=== PATIENT | male | born 1995 | race African-American/Black ===

== ENCOUNTER 2019-02-08 19:53 | Emergency (ER) | payer BC ==
--- NOTE | 2019-02-08 20:29 | EDM.PDOC ---
ED HPI GENERAL MEDICAL PROBLEM - General Chief Complaint: Abdominal Pain Stated Complaint: ABDOMINAL PAIN/BODY ACHES Time Seen by Provider: 02/08/19 20:29 Source of Information: Reports: Patient History Limitations: Reports: No Limitations - History of Present Illness INITIAL COMMENTS - FREE TEXT/NARRATIVE: HISTORY AND PHYSICAL: History of present illness: Patient is a 23-year-old male presents to the ED with complaint of generally not feeling well for the past 2 weeks. He states he has been having joint aches , slight abdominal pain, and diarrhea. He denies fevers, chills, nausea, vomiting, dysuria, hematuria, cough, sore throat, headache. Review of systems: As per history of present illness and below otherwise all systems reviewed and negative. Past medical history: As per history of present illness and as reviewed below otherwise noncontributory. Surgical history: As per history of present illness and as reviewed below otherwise noncontributory. Social history: No reported history of drug or alcohol abuse. Family history: As per history of present illness and as reviewed below otherwise noncontributory. Physical exam: General: Patient sitting comfortably in no acute distress and nontoxic appearing HEENT: Atraumatic, normocephalic, pupils reactive, negative for conjunctival pallor or scleral icterus, mucous membranes moist, throat clear, neck supple, nontender, trachea midline. No meningeal signs. Lungs: Clear to auscultation, breath sounds equal bilaterally, chest nontender. Heart: S1S2, regular, negative for clicks, rubs, or overt murmur. Abdomen: Soft, nondistended, nontender. Negative for masses or hepatosplenomegaly. Negative for costovertebral tenderness. No rigidity, rebound , guarding. Pelvis: Stable nontender. Genitourinary: Deferred. Rectal: Deferred. Extremities: Atraumatic, negative for cords or calf pain. Neurovascular unremarkable. Neuro: Awake, alert, oriented. Cranial nerves II through XII unremarkable. Cerebellum unremarkable. Motor and sensory unremarkable throughout. Exam nonfocal. Notes: Mild dehydration, declined IV fluids Diagnostics: CBC, CMP, UA Therapeutics: [] Prescriptions: Impression: Mild dehydration Plan: Drink plenty of fluids as instructed Follow up with primary care provider Return to ED as needed as discussed Definitive disposition and diagnosis as appropriate pending reevaluation and review of above. abdomen Pain Score (Numeric/FACES): 6 generalized aches Pain Score (Numeric/FACES): 6 - Related Data Allergies Allergy/AdvReac Type Severity Reaction Status Date / Time No Known Allergies Allergy Verified 02/08/19 20:21 Home Meds: Home Meds . [No Known Home Meds] 02/08/19 [History] Past Medical History - Past Health History Medical/Surgical History: Denies Medical/Surgical History Social & Family History - Family History Family Medical History: Noncontributory - Tobacco Use Smoking Status *Q: Never Smoker Second Hand Smoke Exposure: No - Caffeine Use Caffeine Use: Reports: None - Recreational Drug Use Recreational Drug Use: No ED ROS GENERAL - Review of Systems Review Of Systems: ROS reveals no pertinent complaints other than HPI. ED EXAM, GI/ABD - Physical Exam Exam: See Below (see dictation) Course - Vital Signs Last Recorded V/S: Last Vital Signs Temp 96.9 F 02/08/19 20:16 Pulse 72 02/08/19 20:16 Resp 15 02/08/19 20:16 BP Pulse Ox 97 02/08/19 20:16 - Orders/Labs/Meds Labs: Laboratory Tests 02/08/19 02/08/19 02/08/19 Range/Units 20:37 20:46 20:46 WBC 5.22 (4.0-11.0) K/uL RBC 5.08 (4.50-5.90) M/uL Hgb 15.0 (13.0-17.0) g/dL Hct 42.6 (38.0-50.0) % MCV 83.9 (80.0-98.0) fL MCH 29.5 (27.0-32.0) pg MCHC 35.2 (31.0-37.0) g/dL RDW Std Deviation 38.5 (28.0-62.0) fl RDW Coeff of Tressa 13 (11.0-15.0) % Plt Count 179 (150-400) K/uL MPV 11.70 (7.40-12.00) fL Neut % (Auto) 40.6 L (48.0-80.0) % Lymph % (Auto) 46.6 H (16.0-40.0) % [place] % (Auto) 10.3 (0.0-15.0) % Eos % (Auto) 2.1 (0.0-7.0) % Baso % (Auto) 0.4 (0.0-1.5) % Neut # (Auto) 2.1 (1.4-5.7) K/uL Lymph # (Auto) 2.4 (0.6-2.4) K/uL [place] # (Auto) 0.5 (0.0-0.8) K/uL Eos # (Auto) 0.1 (0.0-0.7) K/uL Baso # (Auto) 0.0 (0.0-0.1) K/uL Nucleated RBC % 0.0 /100WBC Nucleated RBCs # 0 K/uL Sodium 141 (136-148) mmol/L Potassium 4.0 (3.5-5.1) mmol/L Chloride 105 (98-107) mmol/L Carbon Dioxide 26.8 (21.0-32.0) mmol/L BUN 22 H (7.0-18.0) mg/dL Creatinine 1.4 H (0.8-1.3) mg/dL Est Cr Clr Drug Dosing 95.83 mL/min Estimated GFR (MDRD) > 60.0 ml/min Glucose 94 (74-106) mg/dL Calcium 8.7 (8.5-10.1) mg/dL Total Bilirubin 0.6 (0.2-1.0) mg/dL AST 20 (15-37) IU/L ALT 23 (14-63) IU/L Alkaline Phosphatase 37 L (46-116) U/L Total Protein 8.1 (6.4-8.2) g/dL Albumin 4.1 (3.4-5.0) g/dL Globulin 4.0 (2.6-4.0) g/dL Albumin/Globulin Ratio 1.0 (0.9-1.6) Urine Color YELLOW Urine Appearance CLEAR Urine pH 5.5 (5.0-8.0) Ur Specific [place] 1.010 (1.001-1.035) Urine Protein NEGATIVE (NEGATIVE) mg/dL Urine Glucose (UA) NEGATIVE (NEGATIVE) mg/dL Urine Ketones NEGATIVE (NEGATIVE) mg/dL Urine Occult Blood NEGATIVE (NEGATIVE) Urine Nitrite NEGATIVE (NEGATIVE) Urine Bilirubin NEGATIVE (NEGATIVE) Urine Urobilinogen 0.2 (<2.0) EU/dL Ur Leukocyte Esterase NEGATIVE (NEGATIVE) Departure - Departure Time of Disposition: 21:14 Disposition: Home, Self-Care 01 Condition: Good Clinical Impression: Mild dehydration - Discharge Information Referrals: PCP,None [Primary Care Provider] - Forms: ED Department Discharge Additional Instructions: The following information is given to patients seen in the emergency department who are being discharged to home. This information is to outline your options for follow-up care. We provide all patients seen in our emergency department with a follow-up referral. The need for follow-up, as well as the timing and circumstances, are variable depending upon the specifics of your emergency department visit. If you don't have a primary care physician on staff, we will provide you with a referral. We always advise you to contact your personal physician following an emergency department visit to inform them of the circumstance of the visit and for follow-up with them and/or the need for any referrals to a consulting specialist. The emergency department will also refer you to a specialist when appropriate. This referral assures that you have the opportunity for follow-up care with a specialist. All of these measure are taken in an effort to provide you with optimal care, which includes your follow-up. Under all circumstances we always encourage you to contact your private physician who remains a resource for coordinating your care. When calling for follow-up care, please make the office aware that this follow-up is from your recent emergency room visit. If for any reason you are refused follow-up, please contact the [facility] Emergency Department at and asked to speak to the emergency department charge nurse. [facility] [address] [place] [id number] [address] Drink plenty of fluids as instructed Follow up with primary care provider Return to ED as needed as discussed
[2019-02-08 21:11] LABS: BLOOD UREA NITROGEN,BUN 22 mg/dL (7.0-18.0); CARBON DIOXIDE,CO2 26.8 mmol/L (21.0-32.0); CHLORIDE,CL 105 mmol/L (98-107); GLUCOSE RANDOM 94 mg/dL (74-106); SODIUM,NA 141 mmol/L (136-148)
== END 2019-02-08 21:32 | disposition home or self-care (01) ==
LOC: MW.ED 19:53
DX: E86.0 Dehydration (principal)
CPT/HCPCS: 36415; 80053; 81003; 85025; 99282; 99284

== ENCOUNTER 2020-04-16 23:26 | Emergency (ER) | payer BC ==
--- NOTE | 2020-04-16 23:49 | EDM.PDOC ---
ED HPI GENERAL MEDICAL PROBLEM - General Chief Complaint: General Stated Complaint: SICK Time Seen by Provider: 04/16/20 23:39 - History of Present Illness INITIAL COMMENTS - FREE TEXT/NARRATIVE: HISTORY AND PHYSICAL: History of present illness: This is a 24-year-old gentleman who presents ER today secondary to an episode of shortness of breath that occurred when his started putting some incidents in the home. Patient denies any other symptomatology. Patient has a recent fevers, shakes, chills, nausea, vomiting, diarrhea, dysuria, frequency, urgency, chest pain, abdominal pain. Patient denies any rhinorrhea, sore throat, ear pain, nasal congestion, cough. Patient reports that after he became short of breath he went outdoors and came to the ED. Patient reports that since going outdoors to come to the ER his shortness of breath has resolved. Patient currently has no other complaints. Review of systems: As per history of present illness and below otherwise all systems reviewed and negative. Past medical history: As per history of present illness and as reviewed below otherwise noncontributory. Surgical history: As per history of present illness and as reviewed below otherwise noncontributory. Social history: No reported history of drug or alcohol abuse. Family history: As per history of present illness and as reviewed below otherwise noncontributory. Physical exam: HEENT: Atraumatic, normocephalic, pupils reactive, negative for conjunctival pallor or scleral icterus, mucous membranes moist, throat clear, neck supple, nontender, trachea midline. Lungs: Clear to auscultation, breath sounds equal bilaterally, chest nontender. No wheezing rales or rhonchi Heart: S1S2, regular, negative for clicks, rubs, or JVD. Abdomen: Soft, nondistended, nontender. Negative for masses or hepatospl enomegaly. Negative for costovertebral tenderness. Pelvis: Stable nontender. Genitourinary: Deferred. Rectal: Deferred. Extremities: Atraumatic, negative for cords or calf pain. Neurovascular unremark able. Neuro: Awake, alert, oriented. Cranial nerves II through XII unremarkable. Cerebellum unremarkable. Motor and sensory unremarkable throughout. Exam nonfocal. Assessment and plan: This is a 24-year-old gentleman who presents ER today secondary to episode of wheezing after inhaling and since that his began to burn inside the home. Patient currently feels much better after leaving the house and going outdoors for a little bit. Patient is clinically and hemodynamically stable. Patient's pulse ox is 99-100% on room air with a heart rate of 84. Patient's lung exam is clear without any wheezing rales or rhonchi. Patient is resting comfortably and does not appear to be in any distress and does not appear to be short of breath. Patient feels very comfortable with the plan to be discharged home. I do not think patient requires any further studies in the ED as he is currently asymptomatic and appears that he likely had a reaction to the incidents. He has had his open all the windows at home to order the sent and he feels comfortable with the plan to be discharged home at this time. Reassessment at the time of disposition demonstrates that the patient is in no acute distress. The patient has remained stable throughout the entire ED visit and is without objective evidence for acute process requiring urgent intervention or hospitalization. The patient is stable for discharge, counseling is provided as documented above, discussed symptomatic treatment and specific conditions for return. I have spoken with the patient/caregiver and discussed todays findings, in addition to providing specific details for the plan of care. Questions are answered and there is agreement with the plan. Definitive disposition and diagnosis as appropriate pending reevaluation and review of above. April 17, 2019 173 2 PM: phone call follow-up made. Patient's voicemail is not set up to receive messages. No answer. - Related Data Allergies Allergy/AdvReac Type Severity Reaction Status Date / Time No Known Allergies Allergy Verified 04/16/20 23:33 Home Meds: Home Meds . [No Known Home Meds] 02/08/19 [History] Past Medical History - Past Health History Medical/Surgical History: Denies Medical/Surgical History - Infectious Disease History Infectious Disease History: Reports: None Social & Family History - Family History Family Medical History: No Pertinent Family History - Tobacco Use Tobacco Use Status *Q: Never Tobacco User - Caffeine Use Caffeine Use: Reports: Coffee - Recreational Drug Use Recreational Drug Use: No ED ROS GENERAL - Review of Systems Review Of Systems: See Below ED EXAM, GENERAL - Physical Exam Exam: See Below Course - Vital Signs Last Recorded V/S: Last Vital Signs Temp 97.8 F 04/16/20 23:33 Pulse 83 04/16/20 23:33 Resp 18 04/16/20 23:33 BP 112/74 04/16/20 23:33 Pulse Ox 100 04/16/20 23:33 Departure - Departure Time of Disposition: 23:47 Disposition: Home, Self-Care 01 Condition: Good Clinical Impression: Acute bronchospasm - Discharge Information Instructions: Shortness of Breath, Adult Referrals: PCP,None [Primary Care Provider] - Forms: ED Department Discharge Additional Instructions: You were seen in the ER secondary to shortness of breath that was most likely related to inhaling incense which likely resulted in some bronchospasms. Right now your exam is normal and appears that leaving the area with incense has resulted in your symptoms resolving. Please return to the ER if you have any new or concerning symptoms. The following information is given to patients seen in the emergency department who are being discharged to home. This information is to outline your options for follow-up care. We provide all patients seen in our emergency department with a follow-up referral. The need for follow-up, as well as the timing and circumstances, are variable depending upon the specifics of your emergency department visit. If you don't have a primary care physician on staff, we will provide you with a referral. We always advise you to contact your personal physician following an emergency department visit to inform them of the circumstance of the visit and for follow-up with them and/or the need for any referrals to a consulting specialist. The emergency department will also refer you to a specialist when appropriate. This referral assures that you have the opportunity for follow-up care with a specialist. All of these measure are taken in an effort to provide you with optimal care, which includes your follow-up. Under all circumstances we always encourage you to contact your private physician who remains a resource for coordinating your care. When calling for follow-up care, please make the office aware that this follow-up is from your recent emergency room visit. If for any reason you are refused follow-up, please contact the [facility] Emergency Department at and asked to speak to the emergency department charge nurse. [facility] - Primary Care [address] [place] [id number] [place] [address] Sepsis Event Note (ED) - Evaluation Sepsis Screening Result: No Definite Risk
== END 2020-04-16 23:59 | disposition home or self-care (01) ==
LOC: MW.ED 23:26
DX: J98.01 Acute bronchospasm (principal)
CPT/HCPCS: 99282; 99284

== ENCOUNTER 2020-07-31 22:14 | Emergency (ER) | payer BC ==
[2020-08-01 00:15] LABS: BLOOD UREA NITROGEN,BUN 12 mg/dL (7.0-18.0); CHLORIDE,CL 107 mmol/L (98-107); GLUCOSE RANDOM 92 mg/dL (74-106); POTASSIUM,K 4.3 mmol/L (3.5-5.1); SODIUM,NA 143 mmol/L (136-148)
[2020-08-01] MEDS ORDERED: Magnesium Oxide 400 MG Tab PO ONE (00:20)
--- NOTE | 2020-08-01 00:24 | EDM.PDOC ---
ED HPI GENERAL MEDICAL PROBLEM - General Chief Complaint: ENT Problem Stated Complaint: BITTER TASTE IN MOUTH Time Seen by Provider: 07/31/20 23:06 - History of Present Illness INITIAL COMMENTS - FREE TEXT/NARRATIVE: CHIEF COMPLAINT(S): Bitterness on my tongue HISTORY OF PRESENT ILLNESS: This is a 24-year-old and with a past medical history of CKD who comes to the emergency department with a chief complaint of bitterness on my tongue. The patient states that for approximately 1 year he has been experiencing bitterness sensation on his tongue. He states that he was evaluated here and got it diagnosed in he states it has something to do with his kidneys. He states that it has not changed or worsened but it seems to be bothering him. He denies any chest pain, shortness of breath, fever, chills, headache, blurry vision, diplopia, numbness, tingling, or weakness. He denies any Covid exposure. He denies any recent travel or recent surgery. He denies any DVT or PE. He denies any trouble walking speaking or swallowing. He states that he has not tried anything for the bitterness. He cannot further describe what the bitterness entails. He denies any trismus or drooling. He denies any sore throat. He denies any earache. REVIEW OF SYSTEMS: Constitutional: Positive for bitterness sensation of the tongue. Denies fever, chills. Eyes: Denies eye pain Ears, Nose, Mouth, & Throat: Denies earache Cardiovascular: Denies chest pain Respiratory: Denies shortness of breath Gastrointestinal: Denies Nausea, vomiting, diarrhea, hematochezia. Genitourinary: Denies hematuria Skin:Denies a rash MSK: Denies joint pain Neurological: Denies blurred vision, numbness, tingling, weakness Psychiatric: Denies depression PAST MEDICAL HISTORY: As per history of present illness and as reviewed below otherwise noncontributory. SURGICAL HISTORY: As per history of present illness and as reviewed below otherwise noncontributory. SOCIAL HISTORY: As per history of present illness and as reviewed below otherwise noncontributory. FAMILY HISTORY: As per history of present illness and as reviewed below otherwise noncontributory. EXAMINATION OF ORGAN SYSTEMS/BODY AREAS: Constitutional: Blood pressure was 102/69, heart rate 84, respiratory 16 with an oxygen saturation 98% on room air. Temperature 36.1 General: Overall well-appearing man who is in no acute distress. Psychiatric: Appropriate mood and affect. Eyes: No scleral icterus or conjunctival erythema pupils equal round reactive to light. Extraocular movements intact. No vertical horizontal nystagmus. ENMT: Moist mucous membranes. No pharyngeal erythema no abnormality of the tongue. The patient does have sensation on the tongue. There is no buccal masses, erythema on the gums or any abnormality. Uvula was midline. No trismus no drooling. Cardiovascular: Regular, rate, and rhythm. No gallops, murmurs, or rubs. Bilateral upper extremity pulses symmetric and intact. No peripheral edema. No JVD. Respiratory: Lungs clear to auscultation bilaterally. No wheezes, rales, or rhonchi. Gastrointestinal: Soft, non-tender, non-distended. Normoactive bowel sounds Genitourinary: No suprapubic tenderness Musculoskeletal: Normal range of motion. Skin: No lesions or abrasions. Neurological: AOx4. CN grossly intact. Strength 5/5 in bilateral upper and lower extremity. Sensation is intact bilaterally in upper and lower extremity. Gait appears normal. Finger to nose, heel to dye, rapid alternating movements intact. MEDICAL DECISION MAKING AND COURSE IN THE ED WITH INTERPRETATION/REVIEW OF DIAGNOSTIC STUDIES: This is a 24-year-old and with a past medical history of kidney disease who comes to the emergency department with 1 year of bitterness on his tongue. At this time the patient has a normal examination. At this time it is uncertain as to what is causing the patient's bitterness however given the duration of symptoms its not likely life-threatening. Will obtain basic labs given his history of kidney disease and evaluate for electrolyte abnormalities. I do not believe any other labs or imaging are indicated. Laboratory: BMP reveals a creatinine of 1.6 which is elevated from 1.4 otherwise unremarkable. There is hypocalcemia at 8.4 and hypomagnesemia at 1.7. After labs I did provide the patient with magnesium supplementation. I did discuss with him at this time that given the duration I do not believe this is life-threatening and that he should follow-up with his primary care physician for further work-up. He was amenable to discharge at this time and had no further questions. He is to return for any new or worsening symptoms. DISPOSITION: The patient was discharged home in stable condition. The patient will follow up with primary care physician within 1 week CONDITION: Fair PROCEDURES: None FINAL IMPRESSION(S)/DIAGNOSES: 1. Acute tongue sensation, unknown etiology Nishant Pandey M.D. - Related Data Allergies Allergy/AdvReac Type Severity Reaction Status Date / Time No Known Allergies Allergy Verified 07/31/20 23:08 Home Meds: Home Meds . [No Known Home Meds] 02/08/19 [History] Past Medical History - Past Health History Medical/Surgical History: Denies Medical/Surgical History - Infectious Disease History Infectious Disease History: Reports: None Social & Family History - Family History Family Medical History: No Pertinent Family History - Caffeine Use Caffeine Use: Reports: Coffee ED ROS GENERAL - Review of Systems Review Of Systems: See Below ED EXAM, GENERAL - Physical Exam Exam: See Below Course - Vital Signs Last Recorded V/S: Last Vital Signs Temp 36.1 C 07/31/20 23:08 Pulse 87 08/01/20 00:03 Resp 17 08/01/20 00:03 BP 112/69 08/01/20 00:03 Pulse Ox 99 08/01/20 00:03 - Orders/Labs/Meds Labs: Laboratory Tests 07/31/20 Range/Units 23:54 Sodium 143 (136-148) mmol/L Potassium 4.3 (3.5-5.1) mmol/L Chloride 107 (98-107) mmol/L Carbon Dioxide 28.0 (21.0-32.0) mmol/L BUN 12 (7.0-18.0) mg/dL Creatinine 1.6 H (0.8-1.3) mg/dL Est Cr Clr Drug Dosing 82.59 mL/min Estimated GFR (MDRD) > 60.0 ml/min Glucose 92 (74-106) mg/dL Calcium 8.4 L (8.5-10.1) mg/dL Magnesium 1.7 L (1.8-2.4) mg/dL Meds: Medications Discontinued Medications Generic Name Dose Route Start Last Admin Trade Name Freq PRN Reason Stop Dose Admin Magnesium Oxide 800 mg 08/01/20 00:20 08/01/20 00:43 Magnesium Oxide 400 Mg Tab PO 08/01/20 00:21 800 mg ONETIME ONE Administration Departure - Departure Time of Disposition: 00:23 Disposition: Home, Self-Care 01 Condition: Good Clinical Impression: Kidney disease - Discharge Information *PRESCRIPTION DRUG MONITORING PROGRAM REVIEWED*: No *COPY OF PRESCRIPTION DRUG MONITORING REPORT IN PATIENT LAVINIA: No Instructions: Chronic Kidney Disease, Adult, [id number] Referrals: PCP,None [Primary Care Provider] - Forms: ED Department Discharge Additional Instructions: Your evaluated today on an emergent basis. At this time your kidney function has slightly worsened. Last year is 1.4 today at 1.6. I do recommend you maintain adequate fluid intake with Gatorade or Pedialyte and water. I do recommend that you follow-up with primary care physician for further management and work-up. If you have any worsening symptoms such as chest pain, shortness of breath, passing out, decreased urination please return to the emergency department. Please follow-up with primary care within 3 to 5 days. [facility] - Primary Care [address] [place] [address] [place] [address] The patient is informed of any results of their evaluation and diagnostic workup and all questions are answered. They are given discharge instructions and return precautions. The patient is stable for discharge. The patient states they understand and agree with the plan and that they will return if their symptoms get worse or if they have any new concerns. The following information is given to patients seen in the emergency department who are being discharged to home. This information is to outline your options for follow-up care. We provide all patients seen in our emergency department with a follow-up referral. The need for follow-up, as well as the timing and circumstances, are variable depending upon the specifics of your emergency department visit. If you don't have a primary care physician on staff, we will provide you with a referral. We always advise you to contact your personal physician following an emergency department visit to inform them of the circumstance of the visit and for follow-up with them and/or the need for any referrals to a consulting specialist. The emergency department will also refer you to a specialist when appropriate. This referral assures that you have the opportunity for follow-up care with a specialist. All of these measure are taken in an effort to provide you with optimal care, which includes your follow-up. Under all circumstances we always encourage you to contact your private physician who remains a resource for coordinating your care. When calling for follow-up care, please make the office aware that this follow-up is from your recent emergency room visit. If for any reason you are refused follow-up, please contact the [facility] Emergency Department at and asked to speak to the emergency department charge nurse. Sepsis Event Note (ED) - Evaluation Sepsis Screening Result: No Definite Risk - Focused Exam Vital Signs: Vital Signs Temp Pulse Resp BP Pulse Ox 08/01/20 00:03 87 17 112/69 99 07/31/20 23:08 36.1 C 84 16 102/69 98
== END 2020-08-01 00:47 | disposition home or self-care (01) ==
LOC: MW.ED 22:14
DX: K14.9 Disease of tongue, unspecified (principal); N28.9 Disorder of kidney and ureter, unspecified
CPT/HCPCS: 36415; 80048; 83735; 99283; A9270

== ENCOUNTER 2020-12-07 20:54 | Emergency (ER) | payer OTHER ==
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
[2020-12-07] MEDS: Acetaminophen/Butalbital/Caffeine 325-50-40 MG Tab PO ONE (22:43)
== END 2020-12-07 22:47 | disposition home or self-care (01) ==
LOC: MW.ED 20:54
DX: S16.1XXA Strain of muscle, fascia and tendon at neck level, initial encounter (principal); V83.0XXA Driver of special industrial vehicle injured in traffic accident, initial encounter; Y92.410 Unspecified street and highway as the place of occurrence of the external cause
CPT/HCPCS: 99283; A9270

== ENCOUNTER 2021-04-20 16:49 | Emergency (ER) | payer OTHER ==
[2021-04-20 17:54] LABS: CORONAVIRUS COVID-19 NAA NEGATIVE (NEGATIVE); INFLUENZA A NAA NEGATIVE (NEGATIVE); INFLUENZA B NAA NEGATIVE (NEGATIVE); RESPIRATORY SYNCYTIAL VIR NAA NEGATIVE (NEGATIVE)
[2021-04-20 18:41] LABS: BLOOD UREA NITROGEN,BUN 16 mg/dL (7.0-18.0); CARBON DIOXIDE,CO2 26.2 mmol/L (21.0-32.0); CHLORIDE,CL 105 mmol/L (98-107); GLUCOSE RANDOM 84 mg/dL (74-106); POTASSIUM,K 3.7 mmol/L (3.5-5.1); SODIUM,NA 141 mmol/L (136-148)
== END 2021-04-20 19:00 | disposition home or self-care (01) ==
LOC: MW.ED 16:49
DX: Z02.89 Encounter for other administrative examinations (principal); Z20.822 Contact with and (suspected) exposure to COVID-19
CPT/HCPCS: 0241U; 36415; 80053; 81003; 85025; 99283

== ENCOUNTER 2021-04-23 16:58 | Emergency (ER) | payer OTHER ==
[2021-04-23] MEDS ORDERED: Sodium Chloride 0.9% 1,000 ML IV ONE (19:39)
[2021-04-23 20:22] LABS: BLOOD UREA NITROGEN,BUN 11 mg/dL (7.0-18.0); CARBON DIOXIDE,CO2 28.3 mmol/L (21.0-32.0); CHLORIDE,CL 105 mmol/L (98-107); GLUCOSE RANDOM 82 mg/dL (74-106); POTASSIUM,K 3.9 mmol/L (3.5-5.1); SODIUM,NA 141 mmol/L (136-148)
[2021-04-23] MEDS ORDERED: Iopamidol 755 MG/ML 500 ML Multipack Bottle IVPUSH ONE (20:27)
== END 2021-04-23 23:43 | disposition home or self-care (01) ==
LOC: MW.ED 16:58
DX: U07.1 COVID-19 (principal); M54.2 Cervicalgia
CPT/HCPCS: 36415; 70498; 80053; 85025; 85610; 87635; 99284; J7030; Q9967; U0002

== ENCOUNTER 2021-06-17 22:52 | Emergency (ER) | payer OTHER ==
[2021-06-18 01:17] LABS: BLOOD UREA NITROGEN,BUN 17 mg/dL (7.0-18.0); CARBON DIOXIDE,CO2 28.4 mmol/L (21.0-32.0); CHLORIDE,CL 105 mmol/L (98-107); ESTIMATED GFR > 60.0 ml/min; GLUCOSE RANDOM 94 mg/dL (74-106); POTASSIUM,K 4.4 mmol/L (3.5-5.1); SODIUM,NA 141 mmol/L (136-148)
== END 2021-06-18 01:32 | disposition home or self-care (01) ==
LOC: MW.ED 22:52
DX: R10.9 Unspecified abdominal pain (principal); R43.2 Parageusia
CPT/HCPCS: 36415; 80053; 81003; 85025; 99282; 99284

== ENCOUNTER 2021-11-15 01:00 | Emergency (ER) | payer OTHER ==
[2021-11-15] MEDS: Sodium Chloride 0.9% 1,000 ML IV ONE (01:24)
[2021-11-15] MEDS: Ketorolac 30 MG/ML SDV IVPUSH ONE (01:24)
[2021-11-15] MEDS: Alum Hydro/Mag Hydro/Simeth XS 15 ML, Lidocaine 2% 5 ML PO ONE ×2 (01:24)
[2021-11-15 01:52] LABS: CARBON DIOXIDE,CO2 27.1 mmol/L (21.0-32.0); POTASSIUM,K 3.8 mmol/L (3.5-5.1)
== END 2021-11-15 02:37 | disposition home or self-care (01) ==
LOC: MW.ED 01:00
DX: R07.89 Other chest pain (principal); Z20.822 Contact with and (suspected) exposure to COVID-19
CPT/HCPCS: 36415; 71045; 80053; 83690; 83735; 84484; 85025; 87635; 96374; 99285; A9270; J1885; J7030; 93005; U0002

== ENCOUNTER 2021-12-16 21:15 | Emergency (ER) | payer OTHER ==
[2021-12-16 22:19] LABS: CARBON DIOXIDE,CO2 29.6 mmol/L (21.0-32.0); POTASSIUM,K 4.1 mmol/L (3.5-5.1)
== END 2021-12-16 22:51 | disposition home or self-care (01) ==
LOC: MW.ED 21:15
DX: R07.9 Chest pain, unspecified (principal); R04.0 Epistaxis
CPT/HCPCS: 36415; 71046; 71046-26; 80053; 84484; 85025; 93005; 93010; 99283; 99285

== ENCOUNTER 2022-05-09 14:27 | Emergency (ER) | payer OTHER ==
[2022-05-09] MEDS ORDERED: Sodium Chloride 0.9% 10 ML Syringe FLUSH PRN (14:44)
[2022-05-09] MEDS ORDERED: Sodium Chloride 0.9% 2.5 ML Syringe FLUSH PRN (14:44)
[2022-05-09 15:22] LABS: CARBON DIOXIDE,CO2 32.2 mmol/L (21.0-32.0); POTASSIUM,K 3.9 mmol/L (3.5-5.1)
== END 2022-05-09 16:38 | disposition home or self-care (01) ==
LOC: MW.ED 14:27
DX: R07.89 Other chest pain (principal)
CPT/HCPCS: 36415; 80053; 84484; 85025; 85379; 93005; 99285; J3490

== ENCOUNTER 2024-06-20 15:28 | Emergency (ER) | payer BC ==
[2024-06-20] MEDS: Ibuprofen 600 MG Tab PO ONE (16:13)
[2024-06-20] MEDS: Acetaminophen 500 MG Tab PO ONE (16:13)
[2024-06-20] MEDS: Dexamethasone 4 MG Tab PO ONE (16:13)
[2024-06-20] MEDS: Ondansetron 4 MG Tab.DIS PO ONE (16:13)
[2024-06-20 16:22] LABS: BASOPHILS ABSOLUTE AUTO 0.02 K/uL (0.00-0.20); BASOPHILS PERCENT AUTO 0.5 % (0.0-1.0); EOSINOPHILS ABSOLUTE AUTO 0.06 K/uL (0.00-0.45); EOSINOPHILS PERCENT AUTO 1.6 % (0.0-6.0); HEMATOCRIT 40.4 % (42.0-52.0); HEMOGLOBIN 14.2 g/dL (14.0-18.0); IMMATURE GRAN ABSOLUTE AUTO 0.04 K/uL (0.00-0.05); IMMATURE GRAN PERCENT AUTO 1.1 % (0.0-0.4); LYMPHOCYTES ABSOLUTE AUTO 1.96 K/uL (1.00-4.80); LYMPHOCYTES PERCENT AUTO 52.1 % (24.0-44.0); MEAN CORPUSCULAR HEMOGLOBIN 29.6 pg (28.0-32.0); MEAN CORPUSCULAR HGB CONC 35.1 g/dL (32.0-36.0); MEAN CORPUSCULAR VOLUME 84.3 fL (83.0-99.0); MEAN PLATELET VOLUME 11.1 fL (9.4-12.4); MONOCYTES ABSOLUTE AUTO 0.34 K/uL (0.00-0.80); NEUTROPHILS ABSOLUTE AUTO 1.34 K/uL (1.80-7.70); NEUTROPHILS PERCENT AUTO 35.7 % (41.0-71.0); PLATELET COUNT,PLT 177 K/uL (150-400); RED BLOOD CELL COUNT 4.79 M/uL (4.52-5.90); WHITE BLOOD CELL COUNT,WBC 3.76 K/uL (3.9-11.3)
[2024-06-20 16:40] LABS: A/G RATIO 1.1 (0.9-1.6); ALBUMIN 3.7 g/dL (3.4-5.0); BILIRUBIN TOTAL 0.8 mg/dL (0.2-1.0); CALCIUM 8.7 mg/dL (8.5-10.1); CARBON DIOXIDE,CO2 27.2 mmol/L (21.0-32.0); CREATININE 1.4 mg/dL (0.8-1.3); EST CRCL DRUG DOSING (CG) 88.6 mL/min; POTASSIUM,K 4.3 mmol/L (3.5-5.1)
== END 2024-06-20 17:16 | disposition home or self-care (01) ==
LOC: MW.ED 15:28
DX: J06.9 Acute upper respiratory infection, unspecified (principal); B97.89 Other viral agents as the cause of diseases classified elsewhere; D72.819 Decreased white blood cell count, unspecified; R11.0 Nausea; Z87.448 Personal history of other diseases of urinary system
CPT/HCPCS: 36415; 80053; 83735; 85025; 87428-QW; 87651; 99284

== ENCOUNTER 2024-09-26 09:47 | Emergency (ER) | payer BC ==
[2024-09-26] MEDS ORDERED: Sodium Chloride 0.9% 2.5 ML Syringe FLUSH PRN (10:18)
[2024-09-26] MEDS ORDERED: Sodium Chloride 0.9% 20 ML SDV IV PRN (10:18)
[2024-09-26] MEDS ORDERED: Sodium Chloride 0.9% 10 ML Syringe FLUSH PRN (10:18)
[2024-09-26 10:27] LABS: BASOPHILS ABSOLUTE AUTO 0.04 K/uL (0.00-0.20); BASOPHILS PERCENT AUTO 0.9 % (0.0-1.0); EOSINOPHILS ABSOLUTE AUTO 0.07 K/uL (0.00-0.45); EOSINOPHILS PERCENT AUTO 1.6 % (0.0-6.0); HEMATOCRIT 40.2 % (42.0-52.0); HEMOGLOBIN 14.3 g/dL (14.0-18.0); LYMPHOCYTES ABSOLUTE AUTO 2.21 K/uL (1.00-4.80); LYMPHOCYTES PERCENT AUTO 51.3 % (24.0-44.0); MEAN CORPUSCULAR HEMOGLOBIN 30.1 pg (28.0-32.0); MEAN CORPUSCULAR HGB CONC 35.6 g/dL (32.0-36.0); MEAN CORPUSCULAR VOLUME 84.6 fL (83.0-99.0); MEAN PLATELET VOLUME 11.1 fL (9.4-12.4); MONOCYTES PERCENT AUTO 9.3 % (0.0-8.0); NEUTROPHILS ABSOLUTE AUTO 1.59 K/uL (1.80-7.70); NEUTROPHILS PERCENT AUTO 36.9 % (41.0-71.0); PLATELET COUNT,PLT 166 K/uL (150-400); RED BLOOD CELL COUNT 4.75 M/uL (4.52-5.90); WHITE BLOOD CELL COUNT,WBC 4.31 K/uL (3.9-11.3)
[2024-09-26] MEDS: Aspirin 81 MG Tab.Chew PO ONE (10:33)
[2024-09-26 10:44] LABS: A/G RATIO 1.2 (0.9-1.6); ALANINE AMINOTRANSFERASE,ALT 20 IU/L (14-63); ALKALINE PHOSPHATASE 34 U/L (46-116); ASPARTATE AMNIOTRANSFERASE,AST 24 IU/L (15-37); BILIRUBIN TOTAL 0.7 mg/dL (0.2-1.0); BLOOD UREA NITROGEN,BUN 20 mg/dL (7.0-18.0); CALCIUM 8.6 mg/dL (8.5-10.1); CARBON DIOXIDE,CO2 29.1 mmol/L (21.0-32.0); CHLORIDE,CL 102 mmol/L (98-107); CREATININE 1.6 mg/dL (0.8-1.3); EST CRCL DRUG DOSING (CG) 78.68 mL/min; ESTIMATED GFR 59 mL/min (>60); GLUCOSE RANDOM 113 mg/dL (74-106); POTASSIUM,K 3.5 mmol/L (3.5-5.1); PROTEIN TOTAL,TP 7.4 g/dL (6.4-8.2); SODIUM,NA 138 mmol/L (136-148)
== END 2024-09-26 13:20 | disposition home or self-care (01) ==
LOC: MW.ED 09:47
DX: R07.89 Other chest pain (principal); M75.101 Unspecified rotator cuff tear or rupture of right shoulder, not specified as traumatic
CPT/HCPCS: 36415; 71045; 80053; 83690; 84484; 85025; 93005; 99285; A9270; 99282

== ENCOUNTER 2024-10-30 08:21 | Emergency (ER) | payer BC | END 2024-10-30 09:37 | disposition home or self-care (01) | LOC: MW.ED 08:21 | DX: J45.909 Unspecified asthma, uncomplicated (principal); Z79.51 Long term (current) use of inhaled steroids; Z79.899 Other long term (current) drug therapy | CPT/HCPCS: 71045; 94640; 99284; J7620; 99282; A9270-GY ==

== ENCOUNTER 2024-12-22 11:24 | Emergency (ER) | payer BC ==
[2024-12-22 13:07] LABS: BASOPHILS ABSOLUTE AUTO 0.04 K/uL (0.00-0.20); BASOPHILS PERCENT AUTO 0.6 % (0.0-1.0); EOSINOPHILS ABSOLUTE AUTO 0.04 K/uL (0.00-0.45); EOSINOPHILS PERCENT AUTO 0.6 % (0.0-6.0); IMMATURE GRAN ABSOLUTE AUTO 0.01 K/uL (0.00-0.05); IMMATURE GRAN PERCENT AUTO 0.2 % (0.0-0.4); LYMPHOCYTES ABSOLUTE AUTO 1.76 K/uL (1.00-4.80); LYMPHOCYTES PERCENT AUTO 27.4 % (24.0-44.0); MEAN PLATELET VOLUME 10.7 fL (9.4-12.4); MONOCYTES ABSOLUTE AUTO 0.66 K/uL (0.00-0.80); MONOCYTES PERCENT AUTO 10.3 % (0.0-8.0); NEUTROPHILS ABSOLUTE AUTO 3.92 K/uL (1.80-7.70); NEUTROPHILS PERCENT AUTO 60.9 % (41.0-71.0); NRBC ABSOLUTE 0.00 K/uL (0.00-0.02); NRBC PERCENT 0.0 /100WBC (0.0-0.2); PLATELET COUNT,PLT 187 K/uL (150-400); RED BLOOD CELL COUNT 4.14 M/uL (4.52-5.90); WHITE BLOOD CELL COUNT,WBC 6.43 K/uL (3.9-11.3)
[2024-12-22 13:34] LABS: A/G RATIO 0.9 (0.9-1.6); ALANINE AMINOTRANSFERASE,ALT 15.0 IU/L (14-63); ASPARTATE AMNIOTRANSFERASE,AST 16.0 IU/L (15-37); BILIRUBIN TOTAL 0.5 mg/dL (0.2-1.0); BLOOD UREA NITROGEN,BUN 17.0 mg/dL (7.0-18.0); CARBON DIOXIDE,CO2 28.7 mmol/L (21.0-32.0); CHLORIDE,CL 106.0 mmol/L (98-107); CREATININE 1.4 mg/dL (0.8-1.3); EST CRCL DRUG DOSING (CG) 85.64 mL/min; GLUCOSE RANDOM 82.0 mg/dL (74-106); POTASSIUM,K 4.3 mmol/L (3.5-5.1); PROTEIN TOTAL,TP 7.2 g/dL (6.4-8.2); SODIUM,NA 142.0 mmol/L (136-148)
[2024-12-22 13:36] LABS: ESTIMATED GFR 69.0 mL/min (>60)
== END 2024-12-22 16:36 | disposition home or self-care (01) ==
LOC: MW.ED 11:24
DX: M94.0 Chondrocostal junction syndrome [Tietze] (principal)
CPT/HCPCS: 36415; 71045; 71045-26; 80053; 83735; 84484; 85025; 93005; 99283; 99285